=== PATIENT | male | born 1945 | race Caucasian/White ===

== ENCOUNTER 2025-04-05 13:53 | Emergency (ER) | payer OTHER ==
[~2025-04-05] VITALS: Ht 167.6 cm; Wt 74.8 kg
[~2025-04-05 13:53] MED LIST: ALTACE10 MG PO; AMOX1TAB12 PO; AVANDIA4 MG PO; CRESTOR5 MG PO; NASONEX17 GM NS; NORVASC10 MG PO; PLAVIX75 MG PO
[2025-04-05] MEDS ORDERED: ACETAMINOPHEN 500 MG GEL..CAP PO ONE (16:30)
[2025-04-05] MEDS ORDERED: ORPHENADRINE CITRATE 30 MG/ML AMPUL IM ONE (16:30)
[2025-04-05] MEDS ORDERED: DEXAMETHASONE SODIUM PHOSPHATE 4 MG/ML VIAL IM ONE (16:30)
[2025-04-05] MEDS ORDERED: TIZANIDINE HCL4 M1 PO (20:34)
[2025-04-05] MEDS ORDERED: KETO10TA2 PO (20:34)
== END 2025-04-05 21:58 | disposition home or self-care (01) ==
LOC: ER 13:53
DX: G89.11 Acute pain due to trauma (principal); M25.511 Pain in right shoulder; R51.9 Headache, unspecified; I10 Essential (primary) hypertension; E11.9 Type 2 diabetes mellitus without complications
CPT/HCPCS: 70450; 72125; 73060; 73090; 73120; 96372; 99284; J1100; J2360